=== PATIENT | male | born 1950 | race Caucasian/White ===

== ENCOUNTER 2016-11-27 14:31 | Outpatient (CLI) | payer OTHER ==
[2016-11-27 18:30] LABS: CREATININE 0.7 mg/dL (0.6-1.2)
== END 2016-11-27 14:32 | disposition home or self-care (01) ==
LOC: LAB.F 14:31
PROVIDERS: ATTEND Specialist
DX: I48.91 Unspecified atrial fibrillation (principal)
CPT/HCPCS: 36415; 82565

== ENCOUNTER 2017-06-02 13:43 | Outpatient (CLI) | payer OTHER ==
[2017-06-02 19:03] LABS: CREATININE 0.8 mg/dL (0.6-1.2)
== END 2017-06-02 13:44 | disposition home or self-care (01) ==
LOC: LAB.F 13:43
PROVIDERS: ATTEND Nurse Practitioner
DX: I48.91 Unspecified atrial fibrillation (principal)
CPT/HCPCS: 36415; 82565

== ENCOUNTER 2017-12-06 10:53 | Outpatient (CLI) | payer OTHER ==
[2017-12-06 18:46] LABS: CREATININE 0.9 mg/dL (0.6-1.2)
== END 2017-12-06 10:54 | disposition home or self-care (01) ==
LOC: LAB.F 10:53
PROVIDERS: ATTEND Specialist
DX: I48.91 Unspecified atrial fibrillation (principal)
CPT/HCPCS: 36415; 82565

== ENCOUNTER 2018-06-03 09:40 | Outpatient (CLI) | payer OTHER ==
[2018-06-03 17:43] LABS: CREATININE 0.9 mg/dL (0.6-1.2)
== END 2018-06-03 09:41 | disposition home or self-care (01) ==
LOC: LAB.F 09:40
PROVIDERS: ATTEND Nurse Practitioner
DX: I48.91 Unspecified atrial fibrillation (principal)
CPT/HCPCS: 36415; 82565

== ENCOUNTER 2018-12-02 11:29 | Outpatient (CLI) | payer OTHER ==
[2018-12-05 11:02] LABS: CREATININE 0.8 mg/dL (0.6-1.2)
== END 2018-12-02 11:30 | disposition home or self-care (01) ==
LOC: LAB.F 11:29
PROVIDERS: ATTEND Specialist
DX: I48.91 Unspecified atrial fibrillation (principal)
CPT/HCPCS: 36415; 82565; 85610

== ENCOUNTER 2019-06-27 09:33 | Outpatient (CLI) | payer MEDICARE ==
--- NOTE | 2019-06-27 14:40 | Ultrasound Report ---
Reason: ABDOMINAL AORTIC ANEURYSM SCREENING Procedure Date: 06/27/2019 Accession Number: [id number] / [id number] Procedure: US - Aorta Screening CPT Code: FULL RESULT: EXAM: AORTIC DOPPLER ULTRASOUND EXAM DATE: 06/27/2019 10:10 AM. CLINICAL HISTORY: ABDOMINAL AORTIC ANEURYSM SCREENING. COMPARISON: None. TECHNIQUE: Real-time sonographic imaging of retroperitoneal vascular structures, including color-flow, Doppler flow and spectral analysis was performed by the vice president diversity. Multiple client service representative static images were saved for review. FINDINGS: Aorta: The abdominal aorta was adequately imaged. No evidence for abdominal aortic aneurysm. Aorta measurements: Proximal sagittal 2.5 cm Mid transverse 2 x 2.1 cm Distal transverse 1.6 x 1.6 cm Iliac Vessels: The proximal common iliac arteries are normal in caliber. Right transverse 1.1 x 1.2 cm, left transverse 1.2 x 1.2 cm. Other: None. IMPRESSION: Normal. No abdominal aortic aneurysm. [facility]
== END 2019-06-27 09:34 | disposition home or self-care (01) ==
LOC: DI 09:33
PROVIDERS: ATTEND Family Medicine
DX: Z13.6 Encounter for screening for cardiovascular disorders (principal); Z87.891 Personal history of nicotine dependence
CPT/HCPCS: 76706

== ENCOUNTER 2020-05-02 12:04 | Outpatient (CLI) | payer MEDICARE ==
[2020-05-02 12:14] LABS: BASOPHILS # (AUTO) 0.1 10^3/uL (0.0-0.1); BASOPHILS % (AUTO) 0.8 %; EOSINOPHILS # (AUTO) 0.1 10^3/uL (0.0-0.7); EOSINOPHILS % (AUTO) 0.7 %; HGB - HEMOGLOBIN 14.6 g/dL (14.0-18.0); LYMPHOCYTES # (AUTO) 2.3 10^3/uL (1.5-3.5); LYMPHOCYTES % (AUTO) 26.6 %; MEAN CORPUSCULAR HEMOGLOBIN 29.6 pg (27.0-31.0); MEAN CORPUSCULAR HGB CONC 33.2 g/dL (32.0-36.0); MEAN CORPUSCULAR VOLUME 89.1 fL (80.0-94.0); MEAN PLATELET VOLUME 11.1 fL (7.4-11.4); MONOCYTES # (AUTO) 0.8 10^3/uL (0.0-1.0); MONOCYTES % (AUTO) 9.4 %; NEUTROPHILS # (AUTO) 5.4 10^3/uL (1.5-6.6); PLT - PLATELET COUNT 189 10^3/uL (130-450); RED BLOOD COUNT 4.94 10^6/uL (4.70-6.10); RED CELL DISTRIBUTION WIDTH 12.4 % (12.0-15.0); WHITE BLOOD COUNT 8.7 x10^3/uL (4.8-10.8)
[2020-05-02 12:39] LABS: ALBUMIN 4.6 g/dL (3.2-5.5); ALBUMIN/GLOBULIN RATIO 1.5 (1.0-2.2); ALKALINE PHOSPHATASE 51 IU/L (42-121); ALT ALANINE AMINOTRANSFERASE 17 IU/L (10-60); AST ASPARTATE AMINOTRANSFERASE 25 IU/L (10-42); BILIRUBIN,TOTAL 1.2 mg/dL (0.2-1.0); BUN - BLOOD UREA NITROGEN 14 mg/dL (6-20); CALCIUM 9.1 mg/dL (8.5-10.3); CARBON DIOXIDE - CO2 26 mmol/L (21-32); CHLORIDE 102 mmol/L (101-111); CHOL/HDL RATIO 2.8 (<5.0); CHOLESTEROL 111 mg/dL; CREATININE 0.8 mg/dL (0.6-1.2); GLUCOSE 128 mg/dL (70-100); HDL CHOLESTEROL 40 mg/dL; LDL CHOLESTEROL,CALCULATED 50 mg/dL; LDL/HDL RATIO 1.3 (<3.6); SODIUM 136 mmol/L (135-145); TOTAL PROTEIN 7.6 g/dL (6.7-8.2); VLDL CHOLESTEROL 21 mg/dL
== END 2020-05-02 12:05 | disposition home or self-care (01) ==
LOC: LAB 12:04
PROVIDERS: ATTEND Internal Medicine Cardiovascular Disease
DX: Z79.899 Other long term (current) drug therapy (principal)
CPT/HCPCS: 36415; 80053; 80061; 83721; 85025